=== PATIENT | female | born 1975 | race African-American/Black ===

== ENCOUNTER 2024-08-16 11:58 | Inpatient (IN) | payer MEDICAID ==
[~2024-08-16] VITALS: Ht 162.6 cm; Wt 56.2 kg
[2024-08-16] MEDS: HYDROCODONE/ACETAMINOPHEN 5/325MG TABLET PO ONE (13:25)
[2024-08-16] MEDS: KETOROLAC 30MG/ML VIAL IM ONE (13:25)
[2024-08-16 13:27] LABS: BASOPHILS % 1.2 % (0.0-2.0); DIFFERENTIAL COMMENT 0; EOSINOPHILS % 2.8 % (0.0-5.0); HEMATOCRIT. 36.4 % (36.0-48.0); LYMPHOCYTES % 31.3 % (20.0-50.0); MEAN CORPUSCULAR HEMOGLOBIN 29.2 pg (28.0-32.0); MEAN CORPUSCULAR HGB CONC 32.9 g/dL (31.0-37.0); MEAN CORPUSCULAR VOLUME 88.8 fL (81.0-99.0); MEAN PLATELET VOLUME 9.3 fl (7.4-10.4); MONOCYTES % 4.8 % (2.0-8.0); NEUTROPHILS % 59.9 % (40.0-76.0); PLATELET 217 x1000/uL (130-400); RED CELL DISTRIBUTION WIDTH 17.9 % (11.6-14.6); WHITE BLOOD COUNT 7.5 x1000/uL (4.5-11.0)
[2024-08-16 13:42] LABS: CARBON DIOXIDE 28 mEq/L (21-32); CHLORIDE 108 mEq/L (98-107); POTASSIUM 3.5 mEq/L (3.5-5.1); SODIUM 141 mEq/L (136-145)
[2024-08-16 13:43] LABS: CALCIUM 9.1 mg/dL (8.7-10.4)
[2024-08-16 13:47] LABS: CREATININE 0.8 mg/dL (0.6-1.0); GLUCOSE 116 mg/dL (70-105)
[2024-08-16 13:48] LABS: UREA NITROGEN BLOOD 9 mg/dL (9-23)
[2024-08-16 15:33] LABS: INR 1.1; PROTHROMBIN TIME 11.8 sec (9.6-11.0)
[2024-08-16 20:00] VITALS: BP 131/84; PULSE 60; RESP 20; TEMP 36.3; O2SAT 100
[2024-08-16] MEDS ORDERED: *PATIENT'S OWN MEDICATION STORAGE XX SCH (21:30)
[2024-08-16] MEDS ORDERED: ALPRAZOLAM 0.5 MG TABLET PO PRN (21:45)
[2024-08-16] MEDS: HYDROCODONE/ACETAMINOPHEN 10/325MG TABLET PO PRN (23:06)
[2024-08-16] MEDS: GABAPENTIN 300MG CAPSULE PO SCH (23:07)
[2024-08-17] VITALS (36 sets, daily range): BP systolic 99–138; BP diastolic 55–126; PULSE 54–80; RESP 9–21; TEMP 36.3–37.2; O2SAT 99–100
[2024-08-17] MEDS: CYCLOBENZAPRINE 10MG TABLET PO SCH (00:12)
[2024-08-17] MEDS: ALPRAZOLAM 0.5 MG TABLET PO PRN (00:27)
[2024-08-17 06:54] LABS: CLARITY URINE CLOUDY (CLEAR); COLOR URINE YELLOW (YELLOW); GLUCOSE URINE NEGATIVE (NEGATIVE); KETONES URINE TRACE (NEGATIVE); LEUKOCYTE ESTERASE URINE 2+ (NEGATIVE); NITRITE URINE POSITIVE (NEGATIVE); OCCULT BLOOD URINE 1+ (NEGATIVE); PH URINE 6.5 (4.5-8.0); PROTEIN URINE 1+ (NEGATIVE); SPECIFIC GRAVITY URINE 1.025 (1.005-1.030); UROBILINOGEN URINE 0.2 E.U./dL (0.2-1.0)
[2024-08-17 06:59] LABS: UCG KIT EXPIRATION DATE 11/27/2026; UCG SCREEN NEGATIVE
[2024-08-17 07:47] LABS: SQUAMOUS EPITHELIAL CELL URINE 1+ /lpf (RARE/1+); WBC URINE 50-100 /hpf (0-2)
[2024-08-17 07:48] LABS: BACTERIA URINE 4+; RBC URINE 0-2 /hpf (0-2)
[2024-08-17] MEDS: CEFTRIAXONE 1GM/50ML 50 ML IV SCH (09:39)
[2024-08-17] MEDS ORDERED: GENTAMICIN SULF 40MG/ML 2ML VIAL ONE ×2 (10:09→11:46)
[2024-08-17] MEDS ORDERED: THROMBIN (BOVINE) 5000 UNITS/VIAL TOP ONE ×2 (10:09→11:46)
[2024-08-17] MEDS ORDERED: SUGAMMADEX SODIUM 200MG/2ML VIAL IV ONE ×2 (10:09→11:46)
[2024-08-17] MEDS ORDERED: LIDOCAINE HCL/EPINEPHRINE 1%-EPI 1:100,000 20ML VIAL ONE ×2 (10:09→11:46)
[2024-08-17] MEDS ORDERED: ONDANSETRON HCL 4MG/2ML INJ ONE (12:46)
[2024-08-17] MEDS ORDERED: CEFAZOLIN SODIUM 1000MG/VIAL ONE (12:46)
[2024-08-17] MEDS ORDERED: FENTANYL CITRATE/PF 50MCG/ML 2ML VIAL ONE (12:46)
[2024-08-17] MEDS ORDERED: PROPOFOL 200MG/20ML VIAL IV ONE ×2 (12:46→13:45)
[2024-08-17] MEDS ORDERED: DEXAMETHASONE 4MG/ML 1ML VIAL ONE (12:46)
[2024-08-17] MEDS ORDERED: SUCCINYLCHOLINE CHLORIDE 200MG/10ML IV ONE (12:46)
[2024-08-17] MEDS ORDERED: ROCURONIUM BROMIDE 10MG/ML VIAL 5ML IV ONE (12:46)
[2024-08-17] MEDS ORDERED: MIDAZOLAM HCL 2 MG/2 ML VIAL ONE (12:47)
[2024-08-17] MEDS ORDERED: HYDROMORPHONE HCL/PF 2MG/ML INJ ONE ×2 (13:49)
[2024-08-17] MEDS ORDERED: NICARDIPINE 100 MG in SODIUM CHLORIDE 0.9% 60 ML IV PRN (14:30)
[2024-08-17] MEDS: DEXT 5%/LACTATED RINGERS 1,000 ML IV SCH (15:04)
[2024-08-17] MEDS: MORPHINE SULFATE 4 MG/ML INJ (FOR IV/IM USE) IV PRN (15:04)
[2024-08-17] MEDS: DEXAMETHASONE 4MG/ML 1ML VIAL IV SCH (17:23)
[2024-08-17] MEDS: ONDANSETRON HCL 4MG/2ML INJ IV PRN (17:30)
[2024-08-17] MEDS: CEFAZOLIN 1000MG PREMIX 50 ML IV SCH (18:50)
[2024-08-17] MEDS ORDERED: CEFAZOLIN SODIUM 1000MG/VIAL IV SCH (22:00)
[2024-08-18] VITALS (37 sets, daily range): BP systolic 102–150; BP diastolic 64–108; PULSE 57–80; RESP 10–29; TEMP 36.2–37.1; O2SAT 98–100
[2024-08-18 05:10] LABS: HEMATOCRIT. 36.9 % (36.0-48.0); HEMOGLOBIN. 12.1 g/dL (12.0-16.0); MEAN CORPUSCULAR HEMOGLOBIN 28.9 pg (28.0-32.0); MEAN CORPUSCULAR HGB CONC 32.8 g/dL (31.0-37.0); MEAN CORPUSCULAR VOLUME 88.3 fL (81.0-99.0); MEAN PLATELET VOLUME 9.8 fl (7.4-10.4); PLATELET 203 x1000/uL (130-400); RED BLOOD CELL COUNT 4.18 mill/uL (4.2-5.4); WHITE BLOOD COUNT 11.7 x1000/uL (4.5-11.0)
[2024-08-18 05:17] LABS: CHLORIDE 107 mEq/L (98-107); POTASSIUM 4.3 mEq/L (3.5-5.1); SODIUM 137 mEq/L (136-145)
[2024-08-18 05:18] LABS: CALCIUM 8.7 mg/dL (8.7-10.4); CARBON DIOXIDE 24 mEq/L (21-32)
[2024-08-18 05:23] LABS: CREATININE 0.7 mg/dL (0.6-1.0); GLUCOSE 174 mg/dL (70-105); UREA NITROGEN BLOOD 7 mg/dL (9-23)
[2024-08-18 05:26] LABS: DIFFERENTIAL COMMENT 1
[2024-08-18 08:37] LABS: *AMPHETAMINES SCREEN URINE NEGATIVE (NEGATIVE); *BARBITURATES SCREEN URINE NEGATIVE (NEGATIVE); *BENZODIAZEPINES SCREEN URINE PRESUMPTIVE POSITIVE (NEGATIVE); *COCAINE SCREEN URINE NEGATIVE (NEGATIVE); CANNABINOID URINE SCREEN PRESUMPTIVE POSITIVE (NEGATIVE); ECSTASY MDMA SCREEN URINE NEGATIVE (NEGATIVE); METHADONE URINE SCREEN NEGATIVE (NEGATIVE); OPIATES URINE SCREEN PRESUMPTIVE POSITIVE (NEGATIVE); PHENCYCLIDINE URINE SCREEN NEGATIVE (NEGATIVE)
[2024-08-18 09:37] LABS: ANISOCYTOSIS 1+; HYPOCHROMASIA 1+; PLATELET ESTIMATE NORMAL
[2024-08-18] MEDS ORDERED: NALOXONE HCL 0.4MG/ML VIAL IV PRN (16:45)
[2024-08-19] VITALS: BP 129/62; PULSE 70; RESP 17; TEMP 36.5; O2SAT 99
[2024-08-19 04:00] VITALS: BP 103/55; PULSE 56; RESP 21; TEMP 36.4; O2SAT 98
[2024-08-19] MEDS ORDERED: LEVO-65 MT (11:22)
[2024-08-19] MEDS ORDERED: HYDR-4001 MT (11:23)
[2024-08-19 14:21] VITALS: BP 133/78; PULSE 56; TEMP 98.4; O2SAT 98
== END 2024-08-19 15:30 | disposition home or self-care (01) | DRG 321 ==
LOC: ER 11:58 → EDBEDREQ 18:51 → EDBEDREQTM 18:51 → ENRESERV 19:12 → 8EST 20:05 → MICUSO 08-17 14:55 → 6WST 08-18 16:37
PROVIDERS: ADMIT Internal Medicine; ATTEND Internal Medicine
PROC: 0RG10K0 Fusion of Cervical Vertebral Joint with Nonautologous Tissue Substitute, Anterior Approach, Anterior Column, Open Approach (ICD-10-PCS; principal; 2024-08-17)
PROC: 0RB30ZZ Excision of Cervical Vertebral Disc, Open Approach (ICD-10-PCS; 2024-08-17)
DX: M48.02 Spinal stenosis, cervical region (principal); G82.50 Quadriplegia, unspecified; M50.023 Cervical disc disorder at C6-C7 level with myelopathy; M47.12 Other spondylosis with myelopathy, cervical region; M50.123 Cervical disc disorder at C6-C7 level with radiculopathy; M47.22 Other spondylosis with radiculopathy, cervical region; N39.0 Urinary tract infection, site not specified; Z88.6 Allergy status to analgesic agent
CPT/HCPCS: 36415; 71045; 72040; 72141; 76000; 80048; 80305; 81003; 81025; 85025; 86850; 86900; 87077; 87186; 88304; 88311; 93005; 95925; 95926; 95928; 95929; 97116; 97162; 97166; 99285; A4606; J0330; J0690; J0696; J1100; J1171; J1580; J1885; J2004; J2250; J2270; J2405; J2704; J3010; J3490; J7121; L0172; C1713